=== PATIENT | female | born 1950 | race Two or more races ===

== ENCOUNTER 2025-06-14 12:51 | Inpatient (IN) | payer MEDICARE ==
[~2025-06-14] VITALS: Ht 162.6 cm; Wt 75.3 kg
[2025-06-14 13:17] LABS: PLATELET COUNT (AUTO) 179 K/uL (150-450); RED BLOOD CELL COUNT(AUTO) 4.62 MIL/uL (4.0-5.2); RED CELL DISTRIBUTION WIDTH 16.5 % (11.5-15.0); WHITE BLOOD COUNT (AUTO) 5.5 K/uL (4.3-11.0)
[2025-06-14 13:29] LABS: CALCIUM, SERUM 9.4 mg/dL (8.5-10.1); CREATININE 0.9 mg/dL (0.6-1.3); SODIUM SERUM 137 mmol/L (136-145); UREA NITROGEN, BLOOD 16 mg/dL (7-18)
[2025-06-14] MEDS: hydrALAZINE HCL IV 20 MG VIAL IV ONE ×2 (13:57)
[2025-06-14] MEDS ORDERED: CARV12.52 PO (15:35)
[2025-06-14] MEDS ORDERED: CLON0.1T PO (15:35)
[2025-06-14] MEDS ORDERED: ATOR40TA PO (15:35)
[2025-06-14] MEDS ORDERED: CLOP75TA15 PO (15:35)
[2025-06-14] MEDS ORDERED: ASPI-1420 PO (15:35)
[2025-06-14] MEDS ORDERED: ONDANSETRON HCL/PF 4 MG/2 ML VIAL IVP PRN (17:00)
[2025-06-14] MEDS ORDERED: ACETAMINOPHEN 325 MG TABLET PO PRN (17:00)
[2025-06-14] MEDS ORDERED: MAGNESIUM HYDROXIDE 30 ML UDC PO PRN (17:00)
[2025-06-14] MEDS ORDERED: Z GUARD REMEDY 4 OZ OINT TP PRN (17:00)
[2025-06-14 17:15] VITALS: BP 157/86; TEMP 98.6; O2SAT 98
[2025-06-14] MEDS: CARVEDILOL 12.5 MG TABLET PO SCH (17:42)
[2025-06-14] MEDS: POTASSIUM CHLORIDE 20 MEQ TAB.PRT.SR PO ONE (17:42)
[2025-06-14] MEDS: CLONIDINE HCL 0.1 MG TABLET PO SCH (17:43)
[2025-06-14 20:00] VITALS: BP 109/76; TEMP 97.9
[2025-06-14] MEDS ORDERED: TEMAZEPAM 7.5 MG CAPSULE PO PRN (22:00)
[2025-06-15] VITALS: BP 120/76; TEMP 98.2; O2SAT 95
[2025-06-15 04:00] VITALS: BP 148/77; TEMP 97.9; O2SAT 95; O2SAT 97
[2025-06-15 06:15] LABS: PLATELET COUNT (AUTO) 153 K/uL (150-450); RED BLOOD CELL COUNT(AUTO) 4.51 MIL/uL (4.0-5.2); RED CELL DISTRIBUTION WIDTH 16.9 % (11.5-15.0); WHITE BLOOD COUNT (AUTO) 3.7 K/uL (4.3-11.0)
[2025-06-15 06:39] LABS: CALCIUM, SERUM 9.4 mg/dL (8.5-10.1); CREATININE 0.8 mg/dL (0.6-1.3); PHOSPHORUS 3.8 mg/dL (2.5-4.9); SODIUM SERUM 141.0 mmol/L (136-145); UREA NITROGEN, BLOOD 15.0 mg/dL (7-18)
[2025-06-15 08:00] VITALS: BP 135/68; TEMP 97.9; O2SAT 96
[2025-06-15] MEDS ORDERED: ASPIRIN EC 81 MG TABLET.DR PO SCH (09:00)
[2025-06-15] MEDS: ATORVASTATIN 40 MG TABLET PO SCH (09:21)
[2025-06-15] MEDS: CLOPIDOGREL BISULFATE 75 MG TABLET PO SCH (09:21)
[2025-06-15] MEDS: CARVEDILOL 12.5 MG TABLET PO SCH (09:27)
[2025-06-15] MEDS: ASPIRIN EC 81 MG TABLET.DR PO SCH (09:28)
[2025-06-15 12:00] VITALS: BP 113/63; TEMP 97.5; O2SAT 96
[2025-06-15 16:00] VITALS: BP 136/71; TEMP 97.5; O2SAT 94
[2025-06-15 20:00] VITALS: BP 102/60; TEMP 98.1; O2SAT 97
[2025-06-16] VITALS: BP 113/68; TEMP 97.8; O2SAT 96
[2025-06-16 04:00] VITALS: BP 113/73; TEMP 97.9; O2SAT 95
[2025-06-16 08:00] VITALS: BP 136/83; TEMP 97.1; O2SAT 97
[2025-06-16] MEDS: MAG HYDROX/AL HYDROX/SIMETH 30 ML UDC PO PRN (08:54)
[2025-06-16] MEDS: ASPIRIN EC 81 MG TABLET.DR PO SCH (08:55)
[2025-06-16 10:44] LABS: ASPARTATE AMINOTRANSFERASE 15 U/L (15-37); TOTAL PROTEIN, SERUM 7.4 g/dL (6.4-8.2)
[2025-06-16 11:20] LABS: CALCIUM, SERUM 9.4 mg/dL (8.5-10.1); CREATININE 1.0 mg/dL (0.6-1.3); SODIUM SERUM 138 mmol/L (136-145); UREA NITROGEN, BLOOD 14 mg/dL (7-18)
[2025-06-16 12:00] VITALS: BP 117/80; TEMP 97.8; O2SAT 97
[2025-06-16] MEDS: METOPROLOL TARTRATE 50 MG TABLET PO ONE (13:06)
[2025-06-16] MEDS: METOPROLOL TARTRATE INJ 5 MG/5 ML AMPUL IVP PRN (15:20)
[2025-06-16] MEDS ORDERED: IV NS 0.9% 250 ML IV ONE (15:22)
[2025-06-16] MEDS ORDERED: IOHEXOL-350 100 ML VIAL IV ONE (15:22)
[2025-06-16] MEDS ORDERED: METOPROLOL TARTRATE INJ 5 MG/5 ML AMPUL ONE ×2 (15:23→15:31)
[2025-06-16] MEDS ORDERED: NITROGLYCERIN 0.4 MG/TAB BOTTLE ONE (15:23)
[2025-06-16] MEDS: NITROGLYCERIN 0.4 MG/TAB BOTTLE SL ONE (15:40)
[2025-06-16 16:00] VITALS: BP 106/68; TEMP 97.1; O2SAT 95
[2025-06-16 20:00] VITALS: BP 112/67; TEMP 98.2; O2SAT 96
[2025-06-17] VITALS: BP 117/69; TEMP 98.2; O2SAT 95
[2025-06-17 04:00] VITALS: BP 128/67; TEMP 98.6; O2SAT 96
[2025-06-17 06:08] LABS: PLATELET COUNT (AUTO) 147 K/uL (150-450); RED BLOOD CELL COUNT(AUTO) 4.57 MIL/uL (4.0-5.2); RED CELL DISTRIBUTION WIDTH 17.0 % (11.5-15.0); WHITE BLOOD COUNT (AUTO) 4.1 K/uL (4.3-11.0)
[2025-06-17 06:21] LABS: CALCIUM, SERUM 9.5 mg/dL (8.5-10.1); CREATININE 0.9 mg/dL (0.6-1.3); SODIUM SERUM 141.0 mmol/L (136-145); UREA NITROGEN, BLOOD 14.0 mg/dL (7-18)
[2025-06-17 08:00] VITALS: BP 136/78; TEMP 97.3; O2SAT 98
[2025-06-17] MEDS: POTASSIUM CL. PREMIX PERIPHER. 50 ML IV SCH (10:34)
[2025-06-17 12:00] VITALS: BP 133/70; TEMP 98; O2SAT 96
[2025-06-17] MEDS: POTASSIUM CHLORIDE 10 MEQ TABLET.SA PO ONE (13:30)
[2025-06-17 16:00] VITALS: BP 132/93; TEMP 97.8; O2SAT 96
[2025-06-17 16:40] LABS: INR 1.14 (0.91-1.10)
[2025-06-17] MEDS ORDERED: ANESTHESIA TRAY IN PYXIS 1 EA TRAY MC ONE (19:07)
[2025-06-17 20:20] VITALS: BP 135/78; TEMP 97.9; O2SAT 96
[2025-06-18] VITALS: BP 131/72; TEMP 98.1; O2SAT 95
[2025-06-18 04:00] VITALS: BP 138/75; TEMP 97.5; O2SAT 95
[2025-06-18 06:33] LABS: CALCIUM, SERUM 9.3 mg/dL (8.5-10.1); CREATININE 0.8 mg/dL (0.6-1.3); SODIUM SERUM 143.0 mmol/L (136-145); UREA NITROGEN, BLOOD 17.0 mg/dL (7-18)
[2025-06-18 08:00] VITALS: BP 136/81; TEMP 97.7; O2SAT 97
[2025-06-18 08:37] VITALS: BP 136/81
[2025-06-18] MEDS ORDERED: PANT40TA2 PO (10:35)
== END 2025-06-18 14:58 | disposition home health service (06) | DRG 303 ==
LOC: ER 12:56 → TELE1 17:24 → MEDSG1 06-18 12:10
PROVIDERS: ADMIT Internal Medicine; ATTEND Internal Medicine
PROC: 0DB68ZX Excision of Stomach, Via Natural or Artificial Opening Endoscopic, Diagnostic (ICD-10-PCS; principal; 2025-06-17 19:40)
DX: I25.110 Atherosclerotic heart disease of native coronary artery with unstable angina pectoris (principal); Z95.5 Presence of coronary angioplasty implant and graft; I10 Essential (primary) hypertension; E78.5 Hyperlipidemia, unspecified; K29.70 Gastritis, unspecified, without bleeding; K21.9 Gastro-esophageal reflux disease without esophagitis
CPT/HCPCS: 36415; 71045-TC; 75574; 76700-TC; 80048-TC; 80053-TC; 83735-TC; 84100-TC; 84439-TC; 84443-TC; 84484-TC; 85025-TC; 85730-TC; 86850-TC; 88305-TC; 88313-TC; 88342; 92526; 92611; 93307-TC; A4223; A6253; G0378; J2704; J3480; J3490; J7030; J7050; Q9967

== ENCOUNTER 2025-08-19 11:23 | Inpatient (IN) | payer MEDICARE, MEDICAID ==
[~2025-08-19] VITALS: Ht 154.9 cm; Wt 72.7 kg
[~2025-08-19 11:23] MED LIST: ASPI-1420 PO; ATOR40TA PO; CARV12.52 PO; CLON0.1T PO; CLOP75TA15 PO; PANT40TA2 PO
[2025-08-19] MEDS ORDERED: ASPIRIN 325 MG TABLET ONE (11:56)
[2025-08-19] MEDS: ASPIRIN 325 MG TABLET PO ONE (11:57)
[2025-08-19] MEDS ORDERED: PANT40TA49 PO (12:08)
[2025-08-19] MEDS ORDERED: LATA2.5D15 EACHEYE (12:08)
[2025-08-19] MEDS ORDERED: AMLO-212 PO (12:08)
[2025-08-19 12:16] LABS: PLATELET COUNT (AUTO) 181 K/uL (150-450); RED BLOOD CELL COUNT(AUTO) 4.64 MIL/uL (4.0-5.2); RED CELL DISTRIBUTION WIDTH 16.4 % (11.5-15.0); WHITE BLOOD COUNT (AUTO) 5.2 K/uL (4.3-11.0)
[2025-08-19 12:19] LABS: CALCIUM, SERUM 8.9 mg/dL (8.5-10.1); CREATININE 0.7 mg/dL (0.6-1.3); SODIUM SERUM 138 mmol/L (136-145); UREA NITROGEN, BLOOD 7 mg/dL (7-18)
[2025-08-19 12:25] LABS: ASPARTATE AMINOTRANSFERASE 17 U/L (15-37); TOTAL PROTEIN, SERUM 7.8 g/dL (6.4-8.2)
[2025-08-19] MEDS ORDERED: MAG HYDROX/AL HYDROX/SIMETH 30 ML UDC PO PRN (13:00)
[2025-08-19] MEDS ORDERED: MAGNESIUM HYDROXIDE 30 ML UDC PO PRN (13:00)
[2025-08-19] MEDS ORDERED: ZOLPIDEM TARTRATE 5 MG TABLET PO PRN (13:00)
[2025-08-19] MEDS ORDERED: ONDANSETRON HCL/PF 4 MG/2 ML VIAL IVP PRN (13:00)
[2025-08-19] MEDS ORDERED: Z GUARD REMEDY 4 OZ OINT TP PRN (13:00)
[2025-08-19 13:20] VITALS: BP 132/70; TEMP 97.7; O2SAT 98
[2025-08-19] MEDS: ENOXAPARIN SODIUM 40 MG/0.4 ML DISP.SYRIN SQ SCH (14:25)
[2025-08-19 15:17] LABS: LDL 78 mg/dL (0-99)
[2025-08-19] MEDS: ACETAMINOPHEN 325 MG TABLET PO PRN (16:02)
[2025-08-19] MEDS: AMLODIPINE BESYLATE 5 MG TABLET PO SCH (16:03)
[2025-08-19] MEDS: CLONIDINE HCL 0.1 MG TABLET PO SCH (17:21)
[2025-08-19] MEDS: CARVEDILOL 12.5 MG TABLET PO SCH (17:21)
[2025-08-19 20:00] VITALS: BP 108/66; TEMP 97.9; O2SAT 93
[2025-08-19] MEDS: ATORVASTATIN 40 MG TABLET PO SCH (21:51)
[2025-08-19] MEDS: LATANOPROST EYE DROP 0.005% 2.5 ML BOTTLE EACHEYE SCH (21:51)
[2025-08-20] VITALS: BP 114/73; TEMP 97.7; O2SAT 94
[2025-08-20 04:00] VITALS: BP 115/68; TEMP 97.9; O2SAT 95
[2025-08-20] MEDS: PANTOPRAZOLE 40 MG TABLET.DR PO SCH (06:45)
[2025-08-20 07:46] LABS: PLATELET COUNT (AUTO) 172 K/uL (150-450); RED BLOOD CELL COUNT(AUTO) 4.39 MIL/uL (4.0-5.2); RED CELL DISTRIBUTION WIDTH 17.1 % (11.5-15.0); WHITE BLOOD COUNT (AUTO) 4.2 K/uL (4.3-11.0)
[2025-08-20 08:00] VITALS: BP 122/82; TEMP 97.9; O2SAT 98
[2025-08-20] MEDS: CLOPIDOGREL BISULFATE 75 MG TABLET PO SCH (08:41)
[2025-08-20] MEDS: ASPIRIN EC 81 MG TABLET.DR PO SCH (08:41)
[2025-08-20 08:53] LABS: CALCIUM, SERUM 8.9 mg/dL (8.5-10.1); CREATININE 0.8 mg/dL (0.6-1.3); SODIUM SERUM 143.0 mmol/L (136-145); UREA NITROGEN, BLOOD 13.0 mg/dL (7-18)
[2025-08-20 09:12] LABS: PHOSPHORUS 4.1 mg/dL (2.5-4.9)
[2025-08-20] MEDS ORDERED: BISM1CAP PO (09:31)
[2025-08-20 11:03] LABS: ASPARTATE AMINOTRANSFERASE 17.0 U/L (15-37); TOTAL PROTEIN, SERUM 6.8 g/dL (6.4-8.2)
== END 2025-08-20 14:55 | disposition home or self-care (01) | DRG 392 ==
LOC: ER 11:27 → TELE 12:35 → MED 08-20 09:36
PROVIDERS: ATTEND Internal Medicine
DX: K29.70 Gastritis, unspecified, without bleeding (principal); B96.81 Helicobacter pylori [H. pylori] as the cause of diseases classified elsewhere; I10 Essential (primary) hypertension; E78.5 Hyperlipidemia, unspecified; I25.10 Atherosclerotic heart disease of native coronary artery without angina pectoris; K21.9 Gastro-esophageal reflux disease without esophagitis; Z95.5 Presence of coronary angioplasty implant and graft; I25.2 Old myocardial infarction; K29.60 Other gastritis without bleeding
CPT/HCPCS: 36415; 71045-TC; 71100-TC; 76700-TC; 78226; 80048-TC; 80061-TC; 80076-TC; 83690-TC; 83735-TC; 84100-TC; 84443-TC; 84484-TC; 85025-TC; 93307-TC; A9537; G0378; J1650